=== PATIENT | male | born 1985 | race Asian ===

== ENCOUNTER 2017-02-08 00:33 | Emergency (ER) | payer BC ==
[2017-02-08 01:09] VITALS: BP 117/15; PULSE 78; TEMP 97.6; BMI 25.1
--- NOTE | 2017-02-08 01:12 | PDOC ---
History of Present Illness - General Stated Complaint: EYE PROBLEM Time Seen by Provider: 02/08/17 00:54 - History of Present Illness Initial Comments: 02/08/17 01:05 CC: Acute onset of eye pain Patient is a 31 y.o. male with no PMH who presents today c/o 1 day h/o L sided eye pain and swelling. Patient states he noticed the pain this morning when he woke up and denies any recent trauma or exposure. Patient denies any associated blurry vision, double vision or lacrimation. Patient notes putting in his contacts increased the pain. NKDA Surgical: none Social: 4-5 cigarettes daily, no alcohol, (+) marijuana weekly, last use today, no cocaine, no heroin PMD: None Past History - Past Medical History Allergies/Adverse Reactions: Allergies Allergy/AdvReac Type Severity Reaction Status Date / Time No Known Allergies Allergy Verified 02/08/17 01:06 Review of Systems - Review of Systems Constitutional: No: Chills, Fever HEENTM: Yes: Eye Pain. No: Blurred Vision, Double Vision Respiratory: No: Cough, Orthopnea, Shortness of Breath Cardiac (ROS): No: Chest Pain, Edema, Irregular Heart Rate, Lightheadedness, Palpitations ABD/GI: No: Nausea, Vomiting Neurological: No: Headache, Numbness Psychiatric: No: Anxiety, Depression All Other Systems: Reviewed and Negative *Physical Exam - Physical Exam General Appearance: Yes: Nourished, Appropriately Dressed HEENT: positive: EOMI, ALLISON, Other (20/25 vision in R eye, 20/20 vision in L eye ; 0.25 hordleum on L eyelid; no corneal abrasion on L eye exam;B/L conjunctival injection - likely 2/2 to recent cannabis consumption) Neck: positive: Trachea midline, Supple Respiratory/Chest: positive: Lungs Clear, Normal Breath Sounds Cardiovascular: positive: Regular Rhythm, Regular Rate, S1, S2 Gastrointestinal/Abdominal: positive: Normal Bowel Sounds, Soft Integumentary: positive: Normal Color, Dry, Warm Neurologic: positive: Fully Oriented, Alert Medical Decision Making - Medical Decision Making 02/08/17 01:14 Patient is a 31 y.o. male who presents with L sided eye pain and mild orbital swelling PLAN: 1. Flourescein exam 2. Pain control 02/08/17 01:49 On PE patient has a 0.25 cm hordleum on L upper eyelid. Snellen test reveals 20/ 20 vision in L eye and 20/25 vision in R eye. Blue light exam shows no corneal ulceration. Patient's pain and swelling resolved with ice and Motrin. 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 *DC/Admit/Observation/Transfer Diagnosis at time of Disposition: good - Referrals Referrals: Fredrick Cazares MD [Staff Physician] - STAFF,NOT ON [Primary Care Provider] - - Patient Instructions Printed Discharge Instructions: DI for Hordeolum Additional Instructions: Place warm compresses on your left eye for 15 mins 4-5 times per day. Follow up with Dr. Cazares in 1-2 week if your eye continues to hurt. Return to the emergency department for any new, worsening, or concerning symptoms.
[2017-02-08] MEDS ORDERED: ACETAMINOPHEN 500 MG TABLET (FP) PO ONE (01:15)
--- NOTE | 2017-02-08 01:18 | PDOC ---
Attending Attestation - Resident Resident Name: Graciela Arellano - ED Attending Attestation I have performed the following: I have examined & evaluated the patient, The case was reviewed & discussed with the resident, I agree w/resident's findings & plan, Exceptions are as noted - HPI HPI: 02/08/17 01:11 31yo no PMH p/w 1 day L sided eye pain and swelling since waking up. No visual changes, no double vision, no lacrimation, no worsening pain with extraocular movement. No exposures. No trauma. Pt wears contacts, and says pain was worse when he put them in. No photophobia. No fevers, chills. Denies other sxs of headache, cp, focal weakness, abd pain, N/V. - Physicial Exam PE: 02/08/17 01:18 GENERAL: Awake, alert, and fully oriented, in no acute distress HEAD: No signs of trauma EYES: PERRLA, EOMI, sclera anicteric, injected conjunctiva b/l, fluorescein test : negative. Normal slit lamp exam, L lateral upper eyelid with 1mm tender erythematous papule with no drainage. Vision 20/20 OU. ENT: Auricles normal inspection, hearing grossly normal, nares patent, oropharynx clear without exudates. Moist mucosa NECK: Normal ROM, supple, no lymphadenopathy, JVD, or masses LUNGS: Breath sounds equal, clear to auscultation bilaterally. No wheezes, and no crackles HEART: Regular rate and rhythm, normal S1 and S2, no murmurs, rubs or gallops ABDOMEN: Soft, nontender, normoactive bowel sounds. No guarding, no rebound. No masses EXTREMITIES: Normal range of motion, no edema. No clubbing or cyanosis. No cords, erythema, or tenderness NEUROLOGICAL: Normal speech, cranial nerves intact, negative pronator drift, 5/ 5 strength in all 4 extremities, normal sensation to light touch in all 4 extremities, normal cerebellar exam, normal gait, normal reflexes and tone SKIN: Warm, Dry, normal turgor, no rashes or lesions noted. - Medical Decision Making 02/08/17 01:19 31yo M contact lens wearer p/w L eye pain. Exam with hordeolum with no surrounding erythema, fluctuance or drainage to suggest superimposed cellulitis. Rpt BP 110/85 (diastolic documented in error as 15) -motrin -warm compresses -DC wtih ophtho fu in 1-2 weeks.
[2017-02-08] MEDS ORDERED: TETRACAINE 0.5% OPHTH SOLN 2 ML BOTTLE OU ONE (01:19)
[2017-02-08] MEDS ORDERED: FLUORESCEIN NA 1 EA STRIP OU ONE (01:19)
[2017-02-08] MEDS ORDERED: TETRACAINE 0.5% OPHTH SOLN 2 ML BOTTLE ONE (01:22)
[2017-02-08] MEDS ORDERED: FLUORESCEIN NA 1 EA STRIP ONE (01:23)
[2017-02-08] MEDS ORDERED: ACETAMINOPHEN 325 MG TABLET (FP) ONE ×2 (01:23→01:25)
[2017-02-08] MEDS ORDERED: IBUPROFEN 400 MG TABLET (FP) PO ONE ×2 (01:49→01:55)
== END 2017-02-08 02:30 | disposition home or self-care (01) ==
LOC: JER 00:33
DX: H57.12 Ocular pain, left eye (principal); Z72.0 Tobacco use
CPT/HCPCS: 99281-25